=== PATIENT | female | born 2005 | race Caucasian/White ===

== ENCOUNTER 2023-08-09 08:05 | Emergency (ER) | payer MEDICAID, OTHER, SELFPAY ==
[~2023-08-09] VITALS: Ht 167.6 cm; Wt 207.3 kg
[2023-08-09] MEDS ORDERED: OMEP10CASR PO (08:26)
[2023-08-09] MEDS ORDERED: HYDR-643 PO (08:27)
[2023-08-09] MEDS ORDERED: CARB300C6 PO (08:27)
[2023-08-09 08:51] LABS: BASO # 0.1 10^3/uL (0.0-0.2); BASO % 0.7 % (0.0-1.0); EOS # 0.2 10^3/uL (0.0-0.5); EOS % 2.6 % (0.0-3.0); HEMATOCRIT 37.4 % (36.0-47.0); HEMOGLOBIN 11.6 g/dl (12.0-15.5); LYMPH # 1.9 10^3/uL (1.5-5.0); LYMPH % 27.7 % (24.0-44.0); MEAN CORPUSCULAR HEMOGLOBIN 25.8 pg (27.0-33.0); MEAN CORPUSCULAR VOLUME 83.1 fl (80.0-96.0); MONO # 0.6 10^3/uL (0.0-0.8); NEUTROPHILS # 4.2 10^3/uL (1.5-8.5); NEUTROPHILS % 60.9 % (36.0-66.0); PLATELET COUNT, AUTOMATED 351 10^3/uL (150-450); WHITE BLOOD COUNT 6.9 10^3/uL (4.0-10.0)
[2023-08-09 09:09] LABS: LIPASE 41 U/L (12-53)
[2023-08-09 09:11] LABS: ALBUMIN 3.1 G/DL (3.2-5.2); ALKALINE PHOSPHATASE 97 U/L (46-116); ALT/SGPT 88 U/L (7.0-40); AST/SGOT 59 U/L (<34); BILIRUBIN,DIRECT < 0.1 MG/DL (<0.4); BILIRUBIN,TOTAL 0.2 MG/DL (0.3-1.2); BLOOD UREA NITROGEN 9 MG/DL (9-23); CALCIUM LEVEL 8.7 MG/DL (8.5-10.1); CARBON DIOXIDE LEVEL 26 MMOL/L (20-31); CHLORIDE LEVEL 109 MMOL/L (98-107); CREATININE FOR GFR 0.69 MG/DL (0.55-1.30); GLUCOSE, FASTING 111 MG/DL (60-100); POTASSIUM SERUM 4.7 MMOL/L (3.5-5.1); SODIUM LEVEL 140 MMOL/L (136-145); TOTAL PROTEIN 6.4 G/DL (5.7-8.2)
[2023-08-09] MEDS: MAALOX 30 ML SUSP *UDC PO ONE (09:16)
[2023-08-09 09:20] LABS: HCG, SERUM QUALITATIVE NEGATIVE (NEGATIVE)
[2023-08-09] MEDS ORDERED: ISOVUE-370 76% 100ML VIAL As Ordered ONE (10:10)
[2023-08-09] MEDS ORDERED: MAALSUS19 PO (12:17)
[2023-08-09 12:29] VITALS: BP 138/68; TEMP 97.8; O2SAT 99
== END 2023-08-09 12:31 | disposition home or self-care (01) ==
LOC: M ED 08:05 → EDBD 08:05 → M ED 12:31
DX: R10.9 Unspecified abdominal pain (principal); K82.8 Other specified diseases of gallbladder; K21.9 Gastro-esophageal reflux disease without esophagitis; F17.200 Nicotine dependence, unspecified, uncomplicated; F60.9 Personality disorder, unspecified; Z79.83 Long term (current) use of bisphosphonates; Z79.899 Other long term (current) drug therapy
CPT/HCPCS: 36415; 74177; 80048; 80076; 81001; 83690; 84703; 85025; 93005; 99284; Q9967

== ENCOUNTER 2024-04-15 10:49 | Emergency (ER) | payer OTHER, SELFPAY ==
[~2024-04-15] VITALS: Ht 167.6 cm; Wt 187.3 kg
[~2024-04-15 10:49] MED LIST: CARB300C6 PO; HYDR-643 PO; MAALSUS19 PO; OMEP10CASR PO
[2024-04-15 12:15] LABS: BASO % 0.4 % (0.0-1.0); EOS % 0.2 % (0.0-3.0); HEMATOCRIT 39.4 % (36.0-47.0); HEMOGLOBIN 12.4 g/dl (12.0-15.5); LYMPH # 1.1 10^3/uL (1.5-5.0); LYMPH % 10.7 % (24.0-44.0); MEAN CORPUSCULAR HEMOGLOBIN 25.4 pg (27.0-33.0); MEAN CORPUSCULAR HGB CONC 31.5 g/dl (32.0-36.5); MEAN CORPUSCULAR VOLUME 80.6 fl (80.0-96.0); MONO # 0.5 10^3/uL (0.0-0.8); MONO % 4.8 % (2.0-8.0); NEUTROPHILS # 8.7 10^3/uL (1.5-8.5); NEUTROPHILS % 83.3 % (36.0-66.0); PLATELET COUNT, AUTOMATED 375 10^3/uL (150-450); RED BLOOD COUNT 4.89 10^6/uL (4.00-5.40); WHITE BLOOD COUNT 10.4 10^3/uL (4.0-10.0)
[2024-04-15 12:45] LABS: LIPASE 30 U/L (12-53)
[2024-04-15 12:47] LABS: ALBUMIN 3.6 G/DL (3.2-5.2); ALKALINE PHOSPHATASE 97 U/L (35-104); ALT/SGPT 31 U/L (7.0-40); AST/SGOT 28 U/L (<34); BILIRUBIN,DIRECT 0.1 MG/DL (<0.4); BILIRUBIN,TOTAL 0.3 MG/DL (0.3-1.2); BLOOD UREA NITROGEN 8 MG/DL (9-23); CARBON DIOXIDE LEVEL 20 MMOL/L (20-31); CHLORIDE LEVEL 108 MMOL/L (98-107); CREATININE FOR GFR 0.83 MG/DL (0.55-1.30); GLUCOSE, FASTING 138 MG/DL (60-100); POTASSIUM SERUM 4.4 MMOL/L (3.5-5.1); SODIUM LEVEL 141 MMOL/L (136-145); TOTAL PROTEIN 7.3 G/DL (5.7-8.2)
[2024-04-15] MEDS: ONDANSETRON 4MG 2ML VIAL IV ONE (13:45)
[2024-04-15] MEDS: NS (Normal Saline) 0.9% 1,000 ML IV ONE (13:45)
[2024-04-15 13:50] LABS: HCG, SERUM QUALITATIVE NEGATIVE (NEGATIVE)
[2024-04-15 14:16] LABS: KETONE, URINE AUTO RFX 1+ mg/dL (NEGATIVE); LEUKOCYTE ESTERASE UR AUTO RFX NEGATIVE (NEGATIVE); MUCUS, URINE RFX SMALL (NEGATIVE); NITRITE, URINE AUTO RFX NEGATIVE (NEGATIVE); RBC, URINE AUTO RFX 1 /HPF (0-3); SQUAM EPITHELIAL CELL UR AURFX 1 /HPF (0-6); WBC, URINE AUTO RFX 1 /HPF (0-3)
[2024-04-15] MEDS: KETOROLAC 30 MG/ML 1ML VIAL IV ONE (14:33)
[2024-04-15] MEDS ORDERED: ISOVUE-370 76% 100ML VIAL As Ordered ONE (15:31)
[2024-04-15] MEDS: METOCLOPRAMIDE INJ 10MG/2ML VIAL IV ONE (17:05)
[2024-04-15] MEDS: ACETAMINOPHEN *IV* 1,000 MG in IV 1 EA IV ONE (17:24)
[2024-04-15] MEDS ORDERED: REGL10TA6 PO (18:08)
[2024-04-15 18:33] VITALS: BP 160/98; TEMP 99.2; O2SAT 98
== END 2024-04-15 18:44 | disposition home or self-care (01) ==
LOC: EDBD 10:49 → M ED 10:49
DX: K80.50 Calculus of bile duct without cholangitis or cholecystitis without obstruction (principal); F17.200 Nicotine dependence, unspecified, uncomplicated; F12.10 Cannabis abuse, uncomplicated; Z79.899 Other long term (current) drug therapy
CPT/HCPCS: 74177; 76705; 80048; 80076; 81001; 83690; 84703; 85025; 96361; 96365; 96375; 99284; J0131; J1885; J2405; J2765; Q9967